=== PATIENT | female | born 1985 | race Asian ===

== ENCOUNTER → 2016-08-27 | Outpatient (CLI) | payer OTHER ==
[~2016-08-27] MED LIST: CONRAY-43 43% 50ML VIAL (Q9960) As Ordered ONE
--- NOTE | 2016-08-27 11:12 | REP ---
MR arthrogram left hip: History: Left hip pain. Popping sensation. Comparison studies: No comparison imaging. Technique: Precontrast imaging includes coronal T1 and T2-weighted scans. Postcontrast small field of view high resolution axial, coronal and sagittal images are acquired in T1 and T2-weighted scans with fat saturation. MR arthrographic findings: Cortical and medullary bone signal intensity is normal in the proximal femur and in the left hemipelvis as visualized. There is no evidence of avascular necrosis. Head neck junction morphology is unremarkable. There is no evidence of preinjection left hip joint effusion or periarticular cyst or bursal fluid collection. Post injection MR imaging shows good filling and enhancement of the left hip articulation. No loose body is seen. Ligamentum teres is intact. There is some separation with intervening contrast enhanced saline at the posterior aspect of the labral cartilage in the left hip joint. A nondisplaced posterior labral tear is suspected. The anterior and superior labrum appear intact. There is no evidence of abdominal wall defect. Uterus is tipped to the left and is unremarkable in appearance. No evidence of mass or adenopathy seen. The visualized tendon insertions are unremarkable. Impression: Question posterior articular cartilage labral tear. Otherwise negative. Signed by Krishna Reed MD 08/27/2016 03:34 P
--- NOTE | 2016-08-27 16:41 | REP ---
Left hip arthrogram The procedure was performed under the direction supervision of Dr. Reed. The benefits and risks including but not limited to pain, infection, bleeding and anaphylaxis were explained to the patient and informed consent was obtained. The left femoral neck was localized using fluoroscopic guidance. Skin was prepped and draped in a sterile fashion. 1% lidocaine was used as a local anesthetic. Using fluoroscopic guidance a 22 gauge spinal needle was inserted and advanced to the femoral neck. 0.5 ml of Conray 43 was injected to verify placement. 11 ml of a solution containing 20 ml of sterile saline and 0.15 ml of ProHance was injected into the joint. The needle was removed and the patient was taken to MRI for postprocedural imaging. The the patient tolerated the procedure well and there were no immediate complications. 1 second of fluoro time was utilized for this procedure. Reviewed by DANIEL Tee 08/27/2016 08:28 ASigned by Krishna Reed MD 08/27/2016 04:33 P
== END ==
LOC: M RADPRO 06:58
PROVIDERS: ATTEND Physician Assistant
DX: M25.552 Pain in left hip (principal)
CPT/HCPCS: 27093; 73723; 77002; A9576; Q9960

== ENCOUNTER → 2016-10-04 | Outpatient (CLI) | payer OTHER ==
[~2016-10-04] MED LIST changes: +LIDOCAINE 1% MDV 20ML VIAL As Ordered ONE; +TRIAMCINOLONE ACETONIDE SUSP 40 MG/ML VIAL (J3301) As Ordered ONE
--- NOTE | 2016-10-04 11:47 | REP ---
LEFT HIP ARTHROCENTESIS WITH MEDICATION INJECTION: The patient was referred for left hip arthrocentesis and medication injection. Informed consent was obtained for the procedure. Under sterile conditions and after satisfactory administration of local anesthesia, using fluoroscopic guidance, access to the left hip joint is obtained using a 23-gauge spinal needle. Injection of a tiny amount of radiographic contrast confirms needle placement within the joint. Then a mixture of 9 mL 1% lidocaine and 1 mL Kenalog 40 mg is injected. The needle was removed and hemostasis obtained with no immediate complication. 16 seconds of fluoroscopy time utilized. Signed by Jameson Wise MD 10/04/2016 04:51 P
== END ==
LOC: M RADPRO 09:52
PROVIDERS: ATTEND Orthopaedic Surgery
DX: M25.552 Pain in left hip (principal)
CPT/HCPCS: 20610; 77002; J3301; Q9960

== ENCOUNTER 2016-10-31 17:20 | Emergency (ER) | payer OTHER ==
[~2016-10-31] VITALS: Ht 175.3 cm; Wt 54.9 kg
[2016-10-31 19:21] VITALS: BP 139/82
== END 2016-10-31 19:22 | disposition home or self-care (01) ==
LOC: M ED 18:05
DX: F41.1 Generalized anxiety disorder (principal); I25.10 Atherosclerotic heart disease of native coronary artery without angina pectoris; F17.210 Nicotine dependence, cigarettes, uncomplicated

== ENCOUNTER → 2016-11-15 | Outpatient (CLI) | payer OTHER ==
--- NOTE | 2016-11-15 09:17 | REP ---
MRI LUMBAR SPINE WITHOUT CONTRAST: 11/15/2016. CLINICAL HISTORY: Spondylosis without myelopathy, sacral ileitis, lumbar radiculitis. Left hip pain. TECHNIQUE: Sagittal T1, T2 and STIR images with axial T1 and T2 sequences. FINDINGS: There is loss of lordosis on the sagittal images. The vertebral body heights and marrow signal are normal throughout. There is slight disc space narrowing at L5- S1 and loss of disc water signal at L4-5 and L5- S1, the other disc levels maintain height and water signal. The conus terminates at the upper aspect of L1. T11-12, T12-L1, L1-2 disc levels all show no bulge or herniation and no spinal or foraminal stenosis. At L2-3 minimal disc bulge without spinal or foraminal stenosis. At L3-4 there is a minimal disc bulge without spinal or foraminal stenosis. At L4-5 there is broad-based disc bulge with central disc protrusion. Some ligamentum flavum and facet hypertrophic changes are present. The cross-sectional area of the canal is mildly diminished. The foramina show some loss of perineural fat on the left but without nerve root compression. The right L4 nerve root has ample space and perineural fat. At L5-S1 there is also a broad-based disc bulge with central left paracentral disc protrusion extending into the left foramen. Cross-sectional area of the canal was adequate. There is loss of perineural fat on the right and left sides with only marginal adequacy of the foramina about the L5 roots. Facet hypertrophy noted at this level is mild. IMPRESSION: 1. Degenerative disc disease with central protrusion at L5-S1 extending into the foramina with mild foraminal encroachment without definite nerve root compression but only marginally adequate perineural fat. 2. The L4-5 level shows a disc bulge with central disc protrusion with some loss of perineural fat on the left without nerve root compression and with the right foramen ample. 3. Minimal disc bulge at L2-3 and L3-4 without spinal or foraminal stenosis. Signed by Darren Arceo MD 11/15/2016 10:13 A
== END ==
LOC: M RAD 06:41
PROVIDERS: ATTEND Pain Medicine Interventional Pain Medicine
DX: M54.16 Radiculopathy, lumbar region (principal); M47.817 Spondylosis without myelopathy or radiculopathy, lumbosacral region; M46.1 Sacroiliitis, not elsewhere classified; M25.552 Pain in left hip; M70.62 Trochanteric bursitis, left hip